=== PATIENT | female | born 1940 | race Caucasian/White ===

== ENCOUNTER 2016-11-13 10:01 | Emergency (ER) | payer MEDICARE, BC ==
[~2016-11-13] VITALS: Ht 165.1 cm; Wt 88.0 kg
[~2016-11-13 10:01] MED LIST: ASPI81 PO; BENZ1CAP34 PO; CLOP75 PO; ESTR2TAB PO; FENO160T PO; HYDR-3533 PO; ISOS5 PO; LISI-360 PO; LISI-587 PO; MORP1INJ45 PO; MOTR200T PO; NITR0.4S SL; PAXI20TA26 PO; TIZA4 PO; ZOCO80TA PO
[2016-11-13 10:05] VITALS: BP 128/75; PULSE 72; RESP 18; TEMP 98.9; O2SAT 95
[2016-11-13] MEDS ORDERED: MUSCLE RELAXER (10:20)
[2016-11-13] MEDS ORDERED: PLAV75TA29 PO (10:20)
[2016-11-13] MEDS ORDERED: SIMV80TA PO (10:20)
[2016-11-13] MEDS ORDERED: ESTR2TAB PO (10:20)
[2016-11-13] MEDS ORDERED: GABA600T PO (10:20)
[2016-11-13] MEDS ORDERED: LISI20TA3 PO (10:20)
[2016-11-13] MEDS ORDERED: ASPI1TAB69 PO (10:20)
[2016-11-13] MEDS ORDERED: FENO160T PO (10:20)
[2016-11-13] MEDS ORDERED: HYDR-3516 PO (10:20)
[2016-11-13] MEDS ORDERED: ESCI20TA PO (10:20)
[2016-11-13] MEDS ORDERED: PANT40TA3 PO (10:20)
--- NOTE | 2016-11-13 11:21 | RADHPO ---
EXAM DATE/TIME: 11/13/2016 11:01 [facility] COMPARISON: No previous studies available for comparison. INDICATIONS : Left ankle pain and swelling post fall 1 month ago. MEDICAL HISTORY : Hypertension. Hypercholesterolemia. Arthritis. Colitis. GERD. SURGICAL HISTORY : Fusion, lumbar. Appendectomy. Cholecystectomy. Hysterectomy. Cataract removal. ENCOUNTER: Initial ACUITY: 1 month PAIN SCORE: 9/10 LOCATION: Left ankle FINDINGS: Soft tissue swelling is present medially and laterally. There is no evidence of acute fracture. Bony mineralization is normal. Joint spaces are maintained. CONCLUSION: 1. Soft tissue swelling without fracture Tristan Lucas MD on November 13, 2016 at 11:19 Board Certified Radiologist. This report was verified electronically.
--- NOTE | 2016-11-13 11:37 | RADHPO ---
EXAM DATE/TIME: 11/13/2016 10:57 [facility] COMPARISON: No previous studies available for comparison. INDICATIONS : Left foot pain & swelling post fall one month ago. MEDICAL HISTORY : Hypercholesterolemia. Hypertension Angina. Sleep apnea. Colitis. GERD. SURGICAL HISTORY : Fusion, lumbar. Appendectomy. Cholecystectomy. Hysterectomy. Cataract removal. ENCOUNTER: Initial ACUITY: 1 month PAIN SCORE: 9/10 LOCATION: Left foot. FINDINGS: Soft tissue swelling is present over the dorsum of the foot. There is no evidence of acute fracture. Bony mineralization is normal. There is arthritis involving the first metatarsophalangeal joint. CONCLUSION: 1. There is no evidence of acute fracture. Tristan Lucas MD on November 13, 2016 at 11:35 Board Certified Radiologist. This report was verified electronically.
--- NOTE | 2016-11-13 12:26 | RADHPO ---
EXAM DATE/TIME: 11/13/2016 12:05 [facility] COMPARISON: No previous studies available for comparison. INDICATIONS : Pain and swelling in left leg. MEDICAL HISTORY : Hypercholesterolemia. Hypertension. Arthritis. Left carotid aneurysm. Sleep apnea. Colitis. SURGICAL HISTORY : Appendectomy. Cholecystectomy. Hysterectomy. Cataract removal. Back surgery - fusion. Right carotid endarterectomy. ENCOUNTER: Initial ACUITY: 1 day PAIN SCORE: 2/10 LOCATION: Left leg. TECHNIQUE: Venous ultrasound of the leg was performed from the inguinal ligament to the proximal calf. Real-lindsay e, color Doppler and spectral tracing, compression and augmentation techniques were used. FINDINGS: There is normal compressibility of the deep venous system from the inguinal region to the proximal ca lf. No echogenic clot is seen in the lumen of the common femoral, femoral, popliteal, and posterior tibial veins. There is a normal response of the venous system to proximal and distal augmentation an d respiration. CONCLUSION: 1. No DVT identified. Marck Escalante MD on November 13, 2016 at 12:23 Board Certified Radiologist. This report was verified electronically.
[2016-11-13] MEDS ORDERED: PRED20 PO (13:00)
--- NOTE | 2016-11-13 13:00 | PD ---
HPI Chief Complaint: Musculoskeletal Complaint Time Seen by Provider: 10:33 Travel History International Travel<30 days: No Contact w/Intl Traveler<30days: No Traveled to known affect area: No History of Present Illness HPI 76 years old female complains of pain and swelling left foot and left ankle. Patient states that the symptoms started 6 months ago. Patient was seen by personal physician at time x-ray did not show no acute bony injury. Patient had CT scan of the left ankle 4 months ago which show no acute bony injury. Patient was seen by personal physician and restaurant general manager. Patient states that she had persistent pain swelling on the left foot and left ankle since then. Patient denies any new injury. Patient denies any chest pain or shortness of breath. Patient denies abdominal pain. Patient denies any focal weakness and numbness of extremity. Patient states that she has occasional swelling on the right ankle also. PFSH Past Medical History Arthritis: Yes Blood Disorders: No Anxiety: Yes Depression: Yes Cancer: No Cardiovascular Problems: Yes (CHEST PAIN/ LEFT CAROTID ANEURSYM) High Cholesterol: Yes Chemotherapy: No Diabetes: No Diminished Hearing: No Endocrine: No Gastrointestinal Disorders: Yes (COLITIS) GERD: Yes Glaucoma: No Genitourinary: No Headaches: Yes Hepatitis: No Hiatal Hernia: No Hypertension: Yes Immune Disorder: No Medical other: Yes (ARTHRITIS BACK AND NECK) Musculoskeletal: Yes Neurologic: Yes Psychiatric: Yes Reproductive: No Respiratory: Yes (SLEEP APNEA, ON CPAP/ DOESNT USE) Radiation Therapy: No Thyroid Disease: No ?: Not Past Surgical History Abdominal Surgery: Yes Appendectomy: Yes (1987) Cardiac Surgery: Yes Cholecystectomy: Yes (1987) Ear Surgery: Yes (CATARACT) Endocrine Surgery: No Eye Surgery: Yes (CATARACT REMOVAL W/IOL) Genitourinary Surgery: No Gynecologic Surgery: Yes (HYSTERECTOMY) Hysterectomy: Yes Joint Replacement: No Neurologic Surgery: Yes (BACK SURGERY FUSION/LOWER) Oral Surgery: No Pacemaker: No Thoracic Surgery: Yes (RIGHT CAROTID ENDARECTOMY) Other Surgery: Yes Social History Alcohol Use: No Tobacco Use: Yes (1 PK/DAY) Substance Use: No Allergies-Medications (Allergen,Severity, Reaction): Coded Allergies: Adhesives (Verified Allergy, Severe, RED SKIN, 11/13/16) Sulfa (Verified Allergy, Severe, unknown, 11/13/16) Pork (Verified Adverse Reaction, Severe, upset stomach SOMETIMES, 11/13/16) Reported Meds & Prescriptions Reported Meds & Active Scripts Active Reported [Muscle Relaxer] Hydrocodone-Acetaminophen 5-325 mg Tab 1 Tab PO Q4H PRN Gabapentin 600 Mg Tab 600 Mg PO TID Plavix (Clopidogrel Bisulfate) 75 Mg Tab 75 Mg PO DAILY Pantoprazole (Pantoprazole Sodium) 40 Mg Tab 40 Mg PO DAILY Fenofibrate 160 Mg Tab 160 Mg PO DAILY Estradiol 2 Mg Tab 2 Mg PO DAILY Simvastatin 80 Mg Tab 80 Mg PO DAILY Lisinopril-Hctz 20-25 Mg Tab 1 Tab PO DAILY Aspirin 81 Mg Tabdr 81 Mg PO DAILY Escitalopram (Escitalopram Oxalate) 20 Mg Tab 20 Mg PO DAILY Review of Systems General / Constitutional: No: Fever Eyes: No: Visual changes HENT: No: Headaches Cardiovascular: No: Chest Pain or Discomfort Respiratory: No: Shortness of Breath Gastrointestinal: No: Abdominal Pain Genitourinary: No: Dysuria Musculoskeletal: Positive: Edema, Pain Skin: No Rash Neurologic: No: Weakness Psychiatric: No: Depression Endocrine: No: Polydipsia Hematologic/Lymphatic: No: Easy Bruising Physical Exam Narrative GENERAL: Well-nourished, well-developed patient. SKIN: Focused skin assessment warm/dry. HEAD: Normocephalic. EYES: No scleral icterus. No injection or drainage. NECK: Supple, trachea midline. No JVD or lymphadenopathy. CARDIOVASCULAR: Regular rate and rhythm without murmurs, gallops, or rubs. RESPIRATORY: Breath sounds equal bilaterally. No accessory muscle use. GASTROINTESTINAL: Abdomen soft, non-tender, nondistended. MUSCULOSKELETAL: No cyanosis, or edema. BACK: Nontender without obvious deformity. No CVA tenderness. Patient had +1 to +2 pitting edema left ankle and dorsal aspect the left foot. No redness no heat noted. Sensorimotor function distally intact. Data Data Last Documented VS Vital Signs Date Time Temp Pulse Resp B/P Pulse Ox O2 Delivery O2 Flow Rate FiO2 11/13/16 10:05 98.9 72 18 128/75 95 Orders Ankle, Complete (Gxy2zel) (11/13/16 10:40) Foot, Complete ([id number]) (11/13/16 10:40) Us Leg Venous Doppler (11/13/16 11:25) MDM Medical Decision Making Medical Screen Exam Complete: Yes Emergency Medical Condition: Yes Interpretation(s) Last Impressions Lower Extremity Ultrasound 11/13/16 1125 Signed Impressions: Service Date/Time: Sunday, November 13, 2016 12:05 - CONCLUSION: 1. No DVT identified. aMrck Escalante MD Foot X-Ray 11/13/16 1040 Signed Impressions: Service Date/Time: Sunday, November 13, 2016 10:57 - CONCLUSION: 1. There is no evidence of acute fracture. Tristan Lucas MD Ankle X-Ray 11/13/16 1040 Signed Impressions: Service Date/Time: Sunday, November 13, 2016 11:01 - CONCLUSION: 1. Soft tissue swelling without fracture Tristan Lucas MD Differential Diagnosis Differential diagnosis including dependent edema, osteoarthritis, fracture, dislocation, gouty arthritis, DVT. Narrative Course 76 years old female with persistent left ankle and foot pain and swelling. Diagnosis Primary Impression: Arthralgia of left foot Additional Impression: Arthralgia of left ankle Patient Instructions: General Instructions Additional Instructions: Keep left foot elevated. Take medication as directed. Follow-up with orthopedist. Med/Other Pt SpecificInfo: Prescription(s) given Scripts Prednisone 20 Mg Tab20 Mg PO DAILY #10 TAB Prov:Mateus Ge MD 11/13/16 Disposition: 01 DISCHARGE HOME Condition: Stable Mateus Ge MD Nov 13, 2016 13:00
== END 2016-11-13 13:08 | disposition home or self-care (01) ==
LOC: PHEFT 10:01
DX: M25.572 Pain in left ankle and joints of left foot (principal); M19.90 Unspecified osteoarthritis, unspecified site; M79.672 Pain in left foot; F41.9 Anxiety disorder, unspecified; F32.9 Major depressive disorder, single episode, unspecified; E78.00 Pure hypercholesterolemia, unspecified; K21.9 Gastro-esophageal reflux disease without esophagitis; I10 Essential (primary) hypertension; F17.200 Nicotine dependence, unspecified, uncomplicated
CPT/HCPCS: 73610; 73630; 93971